=== PATIENT | female | born 1955 | race Caucasian/White ===

== ENCOUNTER 2019-12-02 15:50 | Inpatient (IN) ==
[2019-12-02] MEDS ORDERED: Naloxone 0.4 MG/ML INJ IVP PRN (19:39)
[2019-12-02] MEDS ORDERED: Acetaminophen 325 MG TABLET PO PRN (19:39)
[2019-12-02] MEDS ORDERED: Ondansetron ODT 4 MG TAB.RAPDIS SL PRN (19:39)
[2019-12-02] MEDS ORDERED: D5% in Water 1,000 ML IVC PRN (19:42)
[2019-12-02] MEDS ORDERED: Dextrose Gel 15 GM/37.5 ML TUBE PO PRN ×2 (19:42)
[2019-12-02] MEDS ORDERED: *HR* Dextrose 50 % in Water (Vial) 50 ML VIAL IVP PRN (19:42)
[2019-12-02] MEDS ORDERED: *HR* Heparin 5,000 UNIT/ML VIAL SQ ONE (19:46)
[2019-12-02] MEDS: Insulin LISPRO 300 UNITS/3 ML VIAL SQ SCH (22:17)
[2019-12-02] MEDS: Insulin DETEMIR 100 UNIT/ML X5UNITS SQ SCH (22:17)
[2019-12-03 06:54] LABS: Hematocrit 28.8 % (35.3-44.9); Hemoglobin 9.1 g/dL (11.5-15.4); Mean Corpuscular HGB Conc 31.6 g/dL (31.6-35.5); Mean Corpuscular Hemoglobin 28.8 pg (28.0-33.3); Mean Corpuscular Volume 91.1 fL (83.0-100.0); Mean Platelet Volume 11.8 fL (9.4-12.4); Platelet Count 214 K/mcL (140-400); Red Blood Count 3.16 M/mcL (3.82-4.97); Red Cell Distribution Width 13.2 % (11.5-14.5); White Blood Count 8.7 K/mcL (4.3-11.1)
[2019-12-03] MEDS: *HR* Heparin 5,000 UNIT/ML VIAL SQ SCH ×2 (06:58→17:06)
[2019-12-03 07:06] LABS: Calcium 8.2 mg/dL (8.6-10.3); Magnesium 1.7 mg/dL (1.6-2.6); Phosphorous 5.2 mg/dL (2.7-4.5); Potassium 3.8 mEq/L (3.5-5.1)
[2019-12-03 08:54] LABS: Hepatitis B Surface Antibody < 3.10 mIU/mL
[2019-12-03 09:05] LABS: Hepatitis B Surface Antigen Nonreactive (Nonreactive)
[2019-12-03] MEDS ORDERED: 0.9 % Sodium Chloride 250 ML IVC PRN (09:13)
[2019-12-03] MEDS: Insulin LISPRO 300 UNITS/3 ML VIAL SQ SCH ×4 (09:15→20:49)
[2019-12-03] MEDS ORDERED: 0.9 % Sodium Chloride 1,000 ML PRIME SCH (09:15)
[2019-12-03] MEDS ORDERED: 0.9 % Sodium Chloride 1,000 ML ONE (09:31)
[2019-12-03] MEDS ORDERED: *HR* Heparin 10,000 UNIT/10 ML VIAL ONE (14:06)
[2019-12-03] MEDS: cefTRIAXone 1,000 MG in 0.9 % Sodium Chloride Mini Bag 100 ML IVP SCH (16:01)
[2019-12-03] MEDS ORDERED: Fluticasone Propionate Nasal 50 MCG/SPRAY BOTTLE NS PRN (18:16)
[2019-12-03] MEDS: Calcium Acetate 667 MG CAPSULE PO SCH (18:22)
[2019-12-03] MEDS: Furosemide 40 MG TABLET PO SCH (18:56)
[2019-12-03] MEDS: carvediloL 25 MG TABLET PO SCH (18:56)
[2019-12-03] MEDS: Insulin DETEMIR 100 UNIT/ML X5UNITS SQ SCH (20:48)
[2019-12-04 01:43] LABS: Basophils % 0.5 %; Eosinophils # 0.1 K/mcL (0.0-0.6); Eosinophils % 1.7 %; Hematocrit 26.3 % (35.3-44.9); Hemoglobin 8.5 g/dL (11.5-15.4); Immature Granulocytes % 0.3 % (0-4); Lymphocytes # 1.6 K/mcL (0.6-4.6); Lymphocytes % 28.3 %; Mean Corpuscular HGB Conc 32.3 g/dL (31.6-35.5); Mean Corpuscular Hemoglobin 29.7 pg (28.0-33.3); Mean Platelet Volume 11.9 fL (9.4-12.4); Monocytes # 0.7 K/mcL (0.0-1.3); Monocytes % 11.6 %; Neutrophils # 3.3 K/mcL (1.6-8.9); Platelet Count 195 K/mcL (140-400); Red Blood Count 2.86 M/mcL (3.82-4.97); Red Cell Distribution Width 13.2 % (11.5-14.5); Segmented Neutrophils % 57.6 %; White Blood Count 5.8 K/mcL (4.3-11.1)
[2019-12-04 02:07] LABS: Calcium 7.5 mg/dL (8.6-10.3); Magnesium 1.8 mg/dL (1.6-2.6); Phosphorous 3.3 mg/dL (2.7-4.5); Potassium 4.1 mEq/L (3.5-5.1)
[2019-12-04] MEDS: *HR* Heparin 5,000 UNIT/ML VIAL SQ SCH ×2 (04:01→16:13)
[2019-12-04] MEDS: Furosemide 40 MG TABLET PO SCH ×2 (08:37→16:13)
[2019-12-04] MEDS: amLODIPine 5 MG TABLET PO SCH (08:37)
[2019-12-04] MEDS: Insulin LISPRO 300 UNITS/3 ML VIAL SQ SCH ×4 (08:37→21:30)
[2019-12-04] MEDS: Calcium Acetate 667 MG CAPSULE PO SCH ×3 (08:37→16:13)
[2019-12-04] MEDS: carvediloL 25 MG TABLET PO SCH ×2 (08:38→16:13)
[2019-12-04] MEDS: cefTRIAXone 1,000 MG in 0.9 % Sodium Chloride Mini Bag 100 ML IVP SCH (08:38)
[2019-12-04] MEDS: Insulin DETEMIR 100 UNIT/ML X5UNITS SQ SCH (21:30)
[2019-12-05 03:32] LABS: Basophils # 0.1 K/mcL (0.0-0.2); Basophils % 0.8 %; Eosinophils # 0.2 K/mcL (0.0-0.6); Eosinophils % 2.4 %; Hematocrit 26.3 % (35.3-44.9); Hemoglobin 8.6 g/dL (11.5-15.4); Immature Granulocytes % 1.1 % (0-4); Lymphocytes % 32.1 %; Mean Corpuscular HGB Conc 32.7 g/dL (31.6-35.5); Mean Corpuscular Hemoglobin 29.3 pg (28.0-33.3); Mean Corpuscular Volume 89.5 fL (83.0-100.0); Mean Platelet Volume 11.8 fL (9.4-12.4); Monocytes # 0.5 K/mcL (0.0-1.3); Monocytes % 8.1 %; Neutrophils # 3.5 K/mcL (1.6-8.9); Platelet Count 199 K/mcL (140-400); Red Blood Count 2.94 M/mcL (3.82-4.97); Red Cell Distribution Width 12.6 % (11.5-14.5); Segmented Neutrophils % 55.5 %; White Blood Count 6.3 K/mcL (4.3-11.1)
[2019-12-05] MEDS: *HR* Heparin 5,000 UNIT/ML VIAL SQ SCH (04:15)
[2019-12-05] MEDS ORDERED: 0.9 % Sodium Chloride 250 ML IVC PRN (07:15)
[2019-12-05] MEDS: Furosemide 40 MG TABLET PO SCH (07:30)
[2019-12-05] MEDS: Calcium Acetate 667 MG CAPSULE PO SCH ×2 (07:31→11:47)
[2019-12-05] MEDS: Insulin LISPRO 300 UNITS/3 ML VIAL SQ SCH ×2 (08:02→11:49)
[2019-12-05 13:18] VITALS: BP 151/82
[2019-12-05] MEDS: amLODIPine 5 MG TABLET PO SCH (14:27)
[2019-12-05] MEDS: carvediloL 25 MG TABLET PO SCH (14:27)
[2019-12-05] MEDS: cefTRIAXone 1,000 MG in 0.9 % Sodium Chloride Mini Bag 100 ML IVP SCH (14:28)
== END 2019-12-05 15:39 | disposition home health service (06) | DRG 383 ==
LOC: 2ANU → SUATTDRO 12-04 14:27
PROVIDERS: ADMIT Internal Medicine; ATTEND Internal Medicine

== ENCOUNTER 2021-01-08 18:07 | Inpatient (IN) ==
[~2021-01-08 18:07] MED LIST: cefTRIAXone 1,000 MG in 0.9 % Sodium Chloride Mini Bag 100 ML IVPB SCH
[2021-01-08] MEDS ORDERED: Naloxone 0.4 MG/ML INJ IVP PRN (19:53)
[2021-01-08] MEDS ORDERED: Ondansetron 4 MG/2 ML VIAL IVP PRN (19:53)
[2021-01-08] MEDS ORDERED: D5% in Water 1,000 ML IVC PRN (19:56)
[2021-01-08] MEDS ORDERED: Dextrose Gel 15 GM/37.5 ML TUBE PO PRN ×2 (19:56)
[2021-01-08] MEDS ORDERED: *HR* Dextrose 50 % in Water (Syg) 50 ML SYRINGE IVP PRN (19:56)
[2021-01-08] MEDS ORDERED: Insulin DETEMIR 100 UNIT/ML X5UNITS SUBQ SCH (21:00)
[2021-01-08] MEDS: *HR* Heparin 5,000 UNIT/ML VIAL SQ SCH (21:30)
[2021-01-09] MEDS: Insulin LISPRO 300 UNITS/3 ML VIAL SUBQ SCH ×4 (00:09→16:59)
[2021-01-09 02:03] LABS: Bacteria,Urine Many per hpf (None-Few); Bilirubin,Urine Negative (Negative); Blood,Urine Small (Negative); Budding Yeast,Urine Few per hpf (None Seen); Clarity,Urine Ex.Turbid (Clear); Color,Urine Yellow (Yellow); Glucose,Urine (UA) Normal (Normal); Ketones,Urine Negative (Negative); Leukocyte Esterase,Urine Large (Negative); Mucus,Urine Few per lpf (None-Few); Nitrite,Urine Negative (Negative); PH,Urine 7.5 pH Units (5.0-8.0); Protein,Urine 100 mg/dL (Neg-Trace); Squamous Epithelial Cell,Urine Few per hpf (None-Few); Urobilinogen,Urine Normal (Normal); WBC,Urine TNTC per hpf (0-3)
[2021-01-09 05:59] LABS: Basophils % 0.2 %; Hematocrit 33.3 % (35.3-44.9); Immature Granulocytes % 1.1 % (0-4); Lymphocytes # 1.6 K/mcL (0.6-4.6); Lymphocytes % 10.2 %; Mean Corpuscular Hemoglobin 27.9 pg (28.0-33.3); Mean Corpuscular Volume 84.5 fL (83.0-100.0); Mean Platelet Volume 12.3 fL (9.4-12.4); Monocytes # 0.6 K/mcL (0.0-1.3); Monocytes % 3.6 %; Platelet Count 250 K/mcL (140-400); Red Blood Count 3.94 M/mcL (3.82-4.97); Red Cell Distribution Width 13.6 % (11.5-14.5); Segmented Neutrophils % 84.9 %; White Blood Count 15.3 K/mcL (4.3-11.1)
[2021-01-09 06:05] LABS: Calcium 9.1 mg/dL (8.6-10.3); Phosphorous 2.2 mg/dL (2.7-4.5); Potassium 5.8 mEq/L (3.5-5.1)
[2021-01-09] MEDS: *HR* Heparin 5,000 UNIT/ML VIAL SQ SCH ×3 (06:12→20:41)
[2021-01-09] MEDS ORDERED: Insulin Human Regular 10 UNIT in 0.9 % Sodium Chloride 10 ML IV ONE (06:50)
[2021-01-09 06:51] LABS: Prothrombin Time 10.8 Seconds (9.4-12.1)
[2021-01-09 06:53] LABS: Activated Partial Thrombo Time 28.4 Seconds (26.0-36.0)
[2021-01-09] MEDS ORDERED: *HR* Dextrose 50 % in Water (Syg) 50 ML SYRINGE IVP ONE (07:00)
[2021-01-09] MEDS ORDERED: Acetaminophen IV 1,000 MG/100 ML BAG IVPB ONE (07:29)
[2021-01-09] MEDS ORDERED: Calcium Gluconate 1gm/50mL 1 GM/50 ML BAG IVPB ONE (07:36)
[2021-01-09] MEDS ORDERED: Albuterol 2.5 MG/3 ML NEBULIZER IH ONE (07:37)
[2021-01-09] MEDS ORDERED: 0.9 % Sodium Chloride 250 ML IVC PRN (08:21)
[2021-01-09] MEDS ORDERED: 0.9 % Sodium Chloride 1,000 ML PRIME SCH (08:30)
[2021-01-09] MEDS: Piperacillin/Tazobactam 3.375 GM in 0.9 % Sodium Chloride Mini Bag 100 ML IVPB SCH ×2 (09:01→20:41)
[2021-01-09 10:10] LABS: VBG HCO3 21 mEq/L (21-27); VBG PCO2 32 mmHg (41-51); VBG PH 7.43 pH Units (7.32-7.42); VBG PO2 54 mmHg (25-50)
[2021-01-09 10:43] LABS: Hepatitis B Surface Antibody < 3.10 mIU/mL
[2021-01-09 10:53] LABS: Hepatitis B Surface Antigen Nonreactive (Nonreactive)
[2021-01-09] MEDS ORDERED: *HR* LORazepam 2 MG/ML VIAL IVP PRN (13:07)
[2021-01-09] MEDS: Acetaminophen IV 500 MG/50 ML BAG IVPB SCH ×2 (13:52→20:21)
[2021-01-09] MEDS ORDERED: Vancomycin 1,500 MG/265 ML IV.SOLN IVPB ONE (18:00)
[2021-01-09 19:43] LABS: Calcium 8.6 mg/dL (8.6-10.3); Potassium 3.4 mEq/L (3.5-5.1)
[2021-01-09] MEDS: Bisacodyl 10 MG RECTAL SUPPOSITORY RC SCH (20:20)
[2021-01-09] MEDS: Insulin DETEMIR 100 UNIT/ML X5UNITS SUBQ SCH (20:22)
[2021-01-09] MEDS: levETIRAcetam 250 MG in 0.9 % Sodium Chloride 100 ML IVPB SCH (20:22)
[2021-01-10] MEDS: Thiamine (B-1) 100 MG in 0.9 % Sodium Chloride 50 ML IVPB SCH ×3 (00:55→20:16)
[2021-01-10] MEDS: Insulin LISPRO 300 UNITS/3 ML VIAL SUBQ SCH ×4 (00:56→18:00)
[2021-01-10] MEDS: Acetaminophen IV 500 MG/50 ML BAG IVPB SCH ×2 (01:58→06:26)
[2021-01-10 04:31] LABS: Basophils % 0.3 %; Hematocrit 26.7 % (35.3-44.9); Immature Granulocytes % 0.5 % (0-4); Lymphocytes # 2.9 K/mcL (0.6-4.6); Lymphocytes % 22.8 %; Mean Corpuscular HGB Conc 32.6 g/dL (31.6-35.5); Mean Corpuscular Hemoglobin 28.5 pg (28.0-33.3); Mean Corpuscular Volume 87.5 fL (83.0-100.0); Mean Platelet Volume 11.8 fL (9.4-12.4); Monocytes # 0.7 K/mcL (0.0-1.3); Monocytes % 5.4 %; Platelet Count 190 K/mcL (140-400); Red Blood Count 3.05 M/mcL (3.82-4.97); Red Cell Distribution Width 14.2 % (11.5-14.5); White Blood Count 12.7 K/mcL (4.3-11.1)
[2021-01-10 04:32] LABS: Hemoglobin 8.7 g/dL (11.5-15.4)
[2021-01-10 04:48] LABS: Calcium 8.2 mg/dL (8.6-10.3); Magnesium 1.9 mg/dL (1.6-2.6); Phosphorous 5.1 mg/dL (2.7-4.5); Potassium 4.1 mEq/L (3.5-5.1)
[2021-01-10] MEDS: *HR* Heparin 5,000 UNIT/ML VIAL SQ SCH (06:26)
[2021-01-10] MEDS: levETIRAcetam 250 MG in 0.9 % Sodium Chloride 100 ML IVPB SCH (07:45)
[2021-01-10] MEDS: Piperacillin/Tazobactam 3.375 GM in 0.9 % Sodium Chloride Mini Bag 100 ML IVPB SCH ×2 (10:19→20:16)
[2021-01-10 11:15] LABS: Adenovirus Not Detected (Not Detect); Bordetella Pertussis Not Detected (Not Detect); Chlamydophila pneumoniae Not Detected (Not Detect); Coronavirus 229E Not Detected (Not Detect); Coronavirus HKU1 Not Detected (Not Detect); Coronavirus NL63 Not Detected (Not Detect); Coronavirus OC43 Not Detected (Not Detect); Human Metapneumovirus Not Detected (Not Detect); Human Rhinovirus/Enterovirus Not Detected (Not Detect); Influenza A Subtype 2009 H1 Not Detected (Not Detect); Influenza B Not Detected (Not Detect); Mycoplasma pneumoniae Not Detected (Not Detect); Parainfluenza Virus 1 Not Detected (Not Detect); Parainfluenza Virus 2 Not Detected (Not Detect); Parainfluenza Virus 3 Not Detected (Not Detect); Parainfluenza Virus 4 Not Detected (Not Detect); Respiratory Syncytial Virus Not Detected (Not Detect); SARS-CoV-2 Not Detected (Not Detect)
[2021-01-10 13:35] LABS: ABG Base Excess 3 mEq/L (-2 to 3); ABG HCO3 28 mEq/L (21-27); ABG Oxygen Saturation 92 % (95-98); ABG PCO2 41 mmHg (35-45); ABG PH 7.44 pH Units (7.32-7.45); ABG PO2 63 mmHg (85-104); ABG TCO2 29 mEq/L (20-26)
[2021-01-10 14:30] LABS: Hematocrit 27.6 % (35.3-44.9); Hemoglobin 8.5 g/dL (11.5-15.4)
[2021-01-10] MEDS ORDERED: Milk and Molasses Enema 200 ML RC ONE (14:47)
[2021-01-10] MEDS: Sennosides/Docusate Sodium TABLET PO SCH (20:16)
[2021-01-10] MEDS: Bisacodyl 10 MG RECTAL SUPPOSITORY RC SCH (20:16)
[2021-01-10] MEDS: Insulin DETEMIR 100 UNIT/ML X5UNITS SUBQ SCH (20:19)
[2021-01-11] MEDS: Insulin LISPRO 300 UNITS/3 ML VIAL SUBQ SCH ×4 (00:18→17:10)
[2021-01-11 05:47] LABS: Basophils % 0.2 %; Eosinophils # 0.1 K/mcL (0.0-0.6); Eosinophils % 1.6 %; Hematocrit 27.3 % (35.3-44.9); Immature Granulocytes % 0.5 % (0-4); Lymphocytes # 2.1 K/mcL (0.6-4.6); Lymphocytes % 24.3 %; Mean Corpuscular Hemoglobin 29.2 pg (28.0-33.3); Mean Corpuscular Volume 88.6 fL (83.0-100.0); Mean Platelet Volume 12.2 fL (9.4-12.4); Monocytes # 0.6 K/mcL (0.0-1.3); Monocytes % 6.5 %; Neutrophils # 5.9 K/mcL (1.6-8.9); Platelet Count 193 K/mcL (140-400); Red Blood Count 3.08 M/mcL (3.82-4.97); Segmented Neutrophils % 66.9 %; White Blood Count 8.8 K/mcL (4.3-11.1)
[2021-01-11 06:05] LABS: Albumin 3.2 g/dL (3.5-5.7); Bilirubin,Total 0.6 mg/dL (0.3-1.0); Calcium 7.8 mg/dL (8.6-10.3); Globulin 3.1 g/dL (2.4-3.5); Phosphorous 5.7 mg/dL (2.7-4.5); Potassium 3.9 mEq/L (3.5-5.1); Total Protein 6.3 g/dL (6.4-8.9)
[2021-01-11] MEDS: levETIRAcetam 250 MG in 0.9 % Sodium Chloride 100 ML IVPB SCH (07:31)
[2021-01-11] MEDS: Sennosides/Docusate Sodium TABLET PO SCH ×2 (07:46→20:00)
[2021-01-11] MEDS: Thiamine (B-1) 100 MG in 0.9 % Sodium Chloride 50 ML IVPB SCH ×2 (07:50→20:01)
[2021-01-11] MEDS: Piperacillin/Tazobactam 3.375 GM in 0.9 % Sodium Chloride Mini Bag 100 ML IVPB SCH (09:27)
[2021-01-11] MEDS: cefTRIAXone 1,000 MG in 0.9 % Sodium Chloride Mini Bag 100 ML IVP SCH (14:34)
[2021-01-11] MEDS: *HR* Heparin 5,000 UNIT/ML VIAL SQ SCH ×2 (14:35→20:00)
[2021-01-11] MEDS: Insulin DETEMIR 100 UNIT/ML X5UNITS SUBQ SCH (20:00)
[2021-01-11] MEDS: Bisacodyl 10 MG RECTAL SUPPOSITORY RC SCH (20:12)
[2021-01-12 02:49] LABS: Calcium 7.4 mg/dL (8.6-10.3)
[2021-01-12] MEDS ORDERED: Morphine Sulfate 2 MG/ML SYRINGE IVP ONE (05:13)
[2021-01-12 06:27] LABS: Hematocrit 27.1 % (35.3-44.9); Hemoglobin 8.6 g/dL (11.5-15.4); Mean Corpuscular HGB Conc 31.7 g/dL (31.6-35.5); Mean Corpuscular Hemoglobin 28.1 pg (28.0-33.3); Mean Corpuscular Volume 88.6 fL (83.0-100.0); Mean Platelet Volume 12.1 fL (9.4-12.4); Platelet Count 183 K/mcL (140-400); Red Blood Count 3.06 M/mcL (3.82-4.97); Red Cell Distribution Width 13.7 % (11.5-14.5); White Blood Count 6.3 K/mcL (4.3-11.1)
[2021-01-12] MEDS: *HR* Heparin 5,000 UNIT/ML VIAL SQ SCH ×3 (06:37→21:08)
[2021-01-12 06:58] LABS: Calcium 7.4 mg/dL (8.6-10.3); Potassium 3.5 mEq/L (3.5-5.1)
[2021-01-12] MEDS ORDERED: *HR* Heparin 10,000 UNIT/10 ML VIAL IV PRN (08:30)
[2021-01-12] MEDS ORDERED: 0.9 % Sodium Chloride 1,000 ML PRIME SCH (08:30)
[2021-01-12] MEDS ORDERED: 0.9 % Sodium Chloride 250 ML IVC PRN (08:30)
[2021-01-12] MEDS: Sennosides/Docusate Sodium TABLET PO SCH ×2 (08:55→21:08)
[2021-01-12] MEDS: levETIRAcetam 250 MG in 0.9 % Sodium Chloride 100 ML IVPB SCH (08:57)
[2021-01-12] MEDS: Insulin LISPRO 300 UNITS/3 ML VIAL SUBQ SCH ×3 (09:02→16:39)
[2021-01-12] MEDS: cefTRIAXone 1,000 MG in 0.9 % Sodium Chloride Mini Bag 100 ML IVP SCH (09:33)
[2021-01-12] MEDS: Thiamine (B-1) 100 MG in 0.9 % Sodium Chloride 50 ML IVPB SCH (10:05)
[2021-01-12] MEDS ORDERED: levETIRAcetam 250 MG TABLET PO SCH (21:00)
[2021-01-12] MEDS: Bisacodyl 10 MG RECTAL SUPPOSITORY RC SCH (21:08)
[2021-01-12] MEDS: Thiamine (B-1) 100 MG TABLET PO SCH (21:08)
[2021-01-12] MEDS: Insulin DETEMIR 100 UNIT/ML X5UNITS SUBQ SCH (21:11)
[2021-01-13] MEDS: *HR* Heparin 5,000 UNIT/ML VIAL SQ SCH ×2 (06:41→14:43)
[2021-01-13 06:50] LABS: Hematocrit 27.4 % (35.3-44.9); Hemoglobin 8.8 g/dL (11.5-15.4); Mean Corpuscular HGB Conc 32.1 g/dL (31.6-35.5); Mean Corpuscular Hemoglobin 28.3 pg (28.0-33.3); Mean Corpuscular Volume 88.1 fL (83.0-100.0); Mean Platelet Volume 11.7 fL (9.4-12.4); Platelet Count 211 K/mcL (140-400); Red Blood Count 3.11 M/mcL (3.82-4.97); Red Cell Distribution Width 13.7 % (11.5-14.5); White Blood Count 6.9 K/mcL (4.3-11.1)
[2021-01-13 07:08] LABS: Potassium 3.9 mEq/L (3.5-5.1)
[2021-01-13 07:35] VITALS: TEMP 97.5
[2021-01-13 07:59] LABS: Estimated Average Glucose 148 mg/dl; Hemoglobin A1C 6.8 %
[2021-01-13] MEDS: Thiamine (B-1) 100 MG TABLET PO SCH (09:31)
[2021-01-13] MEDS: cefTRIAXone 1,000 MG in 0.9 % Sodium Chloride Mini Bag 100 ML IVP SCH (09:31)
[2021-01-13] MEDS: Sennosides/Docusate Sodium TABLET PO SCH (09:31)
[2021-01-13] MEDS: Insulin LISPRO 300 UNITS/3 ML VIAL SUBQ SCH ×2 (09:33→12:07)
[2021-01-13] MEDS ORDERED: Ketoconazole Shampoo 120 ML BOTTLE TP ONE (10:28)
[2021-01-13 12:03] VITALS: BP 143/83; PULSE 74; O2SAT 92
== END 2021-01-13 18:31 | disposition home health service (06) | DRG 720 ==
LOC: 2ANU → SUATTDRO 19:13
PROVIDERS: ADMIT Pharmacist; ATTEND Internal Medicine

== ENCOUNTER 2021-03-20 17:06 | Inpatient (IN) ==
[2021-03-20] MEDS ORDERED: Ondansetron 4 MG/2 ML VIAL IVP PRN (20:46)
[2021-03-20] MEDS ORDERED: Naloxone 0.4 MG/ML INJ IVP PRN (20:46)
[2021-03-20] MEDS ORDERED: Azithromycin 500 MG in 0.9 % Sodium Chloride 250 ML IVPB SCH (22:00)
[2021-03-20] MEDS ORDERED: cefTRIAXone 1,000 MG in 0.9 % Sodium Chloride Mini Bag 100 ML IVPB SCH (22:00)
[2021-03-20] MEDS ORDERED: Dextrose Gel 15 GM/37.5 ML TUBE PO PRN ×2 (22:47)
[2021-03-20] MEDS ORDERED: *HR* Dextrose 50 % in Water (Syg) 50 ML SYRINGE IVP PRN (22:47)
[2021-03-20] MEDS ORDERED: D5% in Water 1,000 ML IVC PRN (22:47)
[2021-03-20] MEDS ORDERED: Perflutren Lipid Microsphere 1.3 ML in 0.9 % Sodium Chloride 8.7 ML IVP PRN (23:17)
[2021-03-20] MEDS: MetroNIDAZOLE 500 MG/100 ML 500 MG/100 ML BAG IVPB SCH (23:32)
[2021-03-21 00:40] LABS: Adenovirus Not Detected (Not Detect); Coronavirus 229E Not Detected (Not Detect); Coronavirus HKU1 Not Detected (Not Detect); Coronavirus NL63 Not Detected (Not Detect); Coronavirus OC43 Not Detected (Not Detect)
[2021-03-21 00:41] LABS: Bordetella Pertussis Not Detected (Not Detect); Chlamydophila pneumoniae Not Detected (Not Detect); Human Metapneumovirus Not Detected (Not Detect); Human Rhinovirus/Enterovirus Not Detected (Not Detect); Influenza A Subtype 2009 H1 Not Detected (Not Detect); Influenza B Not Detected (Not Detect); Mycoplasma pneumoniae Not Detected (Not Detect); Parainfluenza Virus 1 Not Detected (Not Detect); Parainfluenza Virus 2 Not Detected (Not Detect); Parainfluenza Virus 3 Not Detected (Not Detect); Parainfluenza Virus 4 Not Detected (Not Detect); Respiratory Syncytial Virus Not Detected (Not Detect); SARS-CoV-2 DETECTED (Not Detect)
[2021-03-21 03:51] LABS: Hematocrit 26.4 % (35.3-44.9); Hemoglobin 8.4 g/dL (11.5-15.4); Mean Corpuscular HGB Conc 31.8 g/dL (31.6-35.5); Mean Corpuscular Hemoglobin 28.8 pg (28.0-33.3); Mean Corpuscular Volume 90.4 fL (83.0-100.0); Mean Platelet Volume 12.2 fL (9.4-12.4); Platelet Count 146 K/mcL (140-400); Red Blood Count 2.92 M/mcL (3.82-4.97); Red Cell Distribution Width 14.4 % (11.5-14.5); White Blood Count 4.1 K/mcL (4.3-11.1)
[2021-03-21 04:03] LABS: Prothrombin Time 11.3 Seconds (9.4-12.1)
[2021-03-21 04:06] LABS: Activated Partial Thrombo Time 30.7 Seconds (26.0-36.0)
[2021-03-21 04:11] LABS: Calcium 7.2 mg/dL (8.6-10.3); Phosphorous 5.7 mg/dL (2.7-4.5); Potassium 4.3 mEq/L (3.5-5.1)
[2021-03-21 04:16] LABS: Troponin I 0.16 ng/mL (< 0.04)
[2021-03-21] MEDS: *HR* Heparin 5,000 UNIT/ML VIAL SQ SCH ×3 (05:58→20:44)
[2021-03-21] MEDS ORDERED: 0.9 % Sodium Chloride 250 ML IVC PRN (08:31)
[2021-03-21] MEDS ORDERED: *HR* Heparin 10,000 UNIT/10 ML VIAL IV PRN (08:31)
[2021-03-21] MEDS ORDERED: 0.9 % Sodium Chloride 1,000 ML PRIME SCH (08:45)
[2021-03-21] MEDS ORDERED: Aspirin 81 MG TAB.CHEW PO SCH (09:00)
[2021-03-21 10:00] LABS: Hepatitis B Surface Antibody < 3.10 mIU/mL
[2021-03-21 10:10] LABS: Hepatitis B Surface Antigen Nonreactive (Nonreactive)
[2021-03-21 10:39] LABS: Hepatitis C Virus Antibody Nonreactive (Nonreactive)
[2021-03-21 10:40] LABS: Hepatitis B Core IgM Nonreactive (Nonreactive)
[2021-03-21 10:42] LABS: Hepatitis A Antibody IgM Nonreactive (Nonreactive)
[2021-03-21] MEDS: Insulin LISPRO 300 UNITS/3 ML VIAL SUBQ SCH ×3 (11:20→17:34)
[2021-03-21] MEDS: carvediloL 6.25 MG TABLET PO SCH (17:07)
[2021-03-21] MEDS: MetroNIDAZOLE 500 MG/100 ML 500 MG/100 ML BAG IVPB SCH ×2 (17:08)
[2021-03-21] MEDS: amLODIPine 5 MG TABLET PO SCH (17:24)
[2021-03-21] MEDS: Isosorbide MONOnitrate (24 HR) 30 MG TAB.ER.24H PO SCH (17:25)
[2021-03-22] MEDS: MetroNIDAZOLE 500 MG/100 ML 500 MG/100 ML BAG IVPB SCH ×2 (00:01→08:22)
[2021-03-22] MEDS: *HR* Heparin 5,000 UNIT/ML VIAL SQ SCH ×3 (05:43→21:27)
[2021-03-22 06:36] LABS: Basophils % 0.2 %; Hematocrit 24.6 % (35.3-44.9); Hemoglobin 8.2 g/dL (11.5-15.4); Immature Granulocytes % 0.4 % (0-4); Lymphocytes # 1.5 K/mcL (0.6-4.6); Mean Corpuscular HGB Conc 33.3 g/dL (31.6-35.5); Mean Corpuscular Hemoglobin 29.5 pg (28.0-33.3); Mean Corpuscular Volume 88.5 fL (83.0-100.0); Mean Platelet Volume 12.7 fL (9.4-12.4); Monocytes # 0.6 K/mcL (0.0-1.3); Monocytes % 11.8 %; Neutrophils # 2.9 K/mcL (1.6-8.9); Platelet Count 168 K/mcL (140-400); Red Blood Count 2.78 M/mcL (3.82-4.97); Red Cell Distribution Width 14.2 % (11.5-14.5); Segmented Neutrophils % 58.6 %
[2021-03-22 06:57] LABS: Calcium 7.4 mg/dL (8.6-10.3)
[2021-03-22 06:59] LABS: % Iron Saturation 78 % (15-50); Iron 161 mcg/dL (50-170); Transferrin 147 mg/dL (203-362)
[2021-03-22] MEDS: Isosorbide MONOnitrate (24 HR) 30 MG TAB.ER.24H PO SCH (08:21)
[2021-03-22] MEDS: Aspirin Enteric Coated 81 MG Tablet PO SCH (08:22)
[2021-03-22] MEDS: methocarbamoL 750 MG TABLET PO SCH (08:22)
[2021-03-22] MEDS: carvediloL 6.25 MG TABLET PO SCH ×2 (08:22→16:52)
[2021-03-22] MEDS: NIFEdipine XL (24 HR) 30 MG TAB.ER.24 PO SCH (08:22)
[2021-03-22] MEDS: Furosemide 40 MG TABLET PO SCH (08:22)
[2021-03-22] MEDS: amLODIPine 5 MG TABLET PO SCH (08:22)
[2021-03-22] MEDS: Insulin LISPRO 300 UNITS/3 ML VIAL SUBQ SCH ×3 (08:23→16:52)
[2021-03-22] MEDS: Acetaminophen 325 MG TABLET PO PRN (13:01)
[2021-03-23 06:02] LABS: Basophils % 0.3 %; Hematocrit 23.8 % (35.3-44.9); Hemoglobin 7.9 g/dL (11.5-15.4); Immature Granulocytes % 0.6 % (0-4); Lymphocytes # 0.5 K/mcL (0.6-4.6); Lymphocytes % 16.6 %; Mean Corpuscular HGB Conc 33.2 g/dL (31.6-35.5); Mean Corpuscular Hemoglobin 28.7 pg (28.0-33.3); Mean Corpuscular Volume 86.5 fL (83.0-100.0); Mean Platelet Volume 12.1 fL (9.4-12.4); Monocytes # 0.2 K/mcL (0.0-1.3); Monocytes % 7.5 %; Neutrophils # 2.4 K/mcL (1.6-8.9); Nucleated Red Blood Cells 0.6 /100 WBC (0); Platelet Count 142 K/mcL (140-400); Red Blood Count 2.75 M/mcL (3.82-4.97); Red Cell Distribution Width 14.1 % (11.5-14.5); White Blood Count 3.2 K/mcL (4.3-11.1)
[2021-03-23] MEDS: *HR* Heparin 5,000 UNIT/ML VIAL SQ SCH ×4 (06:11→21:44)
[2021-03-23 06:22] LABS: Calcium 6.7 mg/dL (8.6-10.3); Potassium 3.8 mEq/L (3.5-5.1)
[2021-03-23] MEDS: Insulin LISPRO 300 UNITS/3 ML VIAL SUBQ SCH ×3 (08:38→17:33)
[2021-03-23] MEDS: amLODIPine 5 MG TABLET PO SCH (08:45)
[2021-03-23] MEDS: Aspirin Enteric Coated 81 MG Tablet PO SCH (08:45)
[2021-03-23] MEDS: NIFEdipine XL (24 HR) 30 MG TAB.ER.24 PO SCH (08:45)
[2021-03-23] MEDS: Isosorbide MONOnitrate (24 HR) 30 MG TAB.ER.24H PO SCH (08:46)
[2021-03-23] MEDS: carvediloL 6.25 MG TABLET PO SCH ×2 (08:46→17:32)
[2021-03-23] MEDS: Furosemide 40 MG TABLET PO SCH (08:46)
[2021-03-23] MEDS: methocarbamoL 750 MG TABLET PO SCH (08:54)
[2021-03-23] MEDS ORDERED: *HR* Heparin 10,000 UNIT/10 ML VIAL IV PRN (09:00)
[2021-03-23] MEDS ORDERED: Valproic Acid 250 MG CAPSULE PO ONE ×2 (10:00→16:15)
[2021-03-23] MEDS: Acetaminophen 325 MG TABLET PO PRN (14:01)
[2021-03-23 15:04] LABS: Folate 4.2 ng/mL (3.0-16.0)
[2021-03-23] MEDS ORDERED: 0.9 % Sodium Chloride 500 ML ONE (21:14)
[2021-03-23] MEDS ORDERED: 0.9 % Sodium Chloride 500 ML IVC ONE (21:41)
[2021-03-23] MEDS: 0.9 % Sodium Chloride 250 ML IVC PRN (22:10)
[2021-03-23] MEDS ORDERED: Albumin 25% 25gram/100mL 25 GM/100 ML IV.SOLN IVPB ONE (23:25)
[2021-03-24] MEDS: 0.9 % Sodium Chloride 250 ML IVC PRN (00:45)
[2021-03-24] MEDS: *HR* Heparin 5,000 UNIT/ML VIAL SQ SCH ×3 (05:19→20:39)
[2021-03-24] MEDS: Isosorbide MONOnitrate (24 HR) 30 MG TAB.ER.24H PO SCH (09:54)
[2021-03-24] MEDS: Aspirin Enteric Coated 81 MG Tablet PO SCH (09:54)
[2021-03-24] MEDS: Furosemide 40 MG TABLET PO SCH (09:54)
[2021-03-24] MEDS: Insulin LISPRO 300 UNITS/3 ML VIAL SUBQ SCH ×4 (09:55→20:38)
[2021-03-24] MEDS: methocarbamoL 750 MG TABLET PO SCH (09:59)
[2021-03-24] MEDS: NIFEdipine XL (24 HR) 30 MG TAB.ER.24 PO SCH (10:16)
[2021-03-24] MEDS: amLODIPine 5 MG TABLET PO SCH (10:16)
[2021-03-24] MEDS: carvediloL 6.25 MG TABLET PO SCH ×2 (10:16→16:18)
[2021-03-24 11:43] LABS: Hematocrit 22.9 % (35.3-44.9); Hemoglobin 7.6 g/dL (11.5-15.4); Mean Corpuscular HGB Conc 33.2 g/dL (31.6-35.5); Mean Corpuscular Hemoglobin 28.7 pg (28.0-33.3); Mean Corpuscular Volume 86.4 fL (83.0-100.0); Mean Platelet Volume 12.4 fL (9.4-12.4); Platelet Count 109 K/mcL (140-400); Red Blood Count 2.65 M/mcL (3.82-4.97); Red Cell Distribution Width 14.1 % (11.5-14.5)
[2021-03-24 11:59] LABS: Potassium 3.9 mEq/L (3.5-5.1)
[2021-03-24 12:13] LABS: Lymphocytes # 0.5 K/mcL (0.6-4.6); Monocytes # 0.1 K/mcL (0.0-1.3); Neutrophils # 2.4 K/mcL (1.6-8.9)
[2021-03-24 12:14] LABS: Platelet Estimate Decreased (Normal)
[2021-03-24] MEDS ORDERED: Insulin DETEMIR 100 UNIT/ML X5UNITS SUBQ ONE (14:52)
[2021-03-24] MEDS: Acetaminophen 325 MG TABLET PO PRN (16:18)
[2021-03-25 02:16] LABS: Hematocrit 22.8 % (35.3-44.9); Hemoglobin 7.4 g/dL (11.5-15.4); Mean Corpuscular HGB Conc 32.5 g/dL (31.6-35.5); Mean Corpuscular Hemoglobin 28.7 pg (28.0-33.3); Mean Corpuscular Volume 88.4 fL (83.0-100.0); Mean Platelet Volume 12.3 fL (9.4-12.4); Platelet Count 152 K/mcL (140-400); Red Blood Count 2.58 M/mcL (3.82-4.97); Red Cell Distribution Width 13.8 % (11.5-14.5); White Blood Count 3.7 K/mcL (4.3-11.1)
[2021-03-25 02:33] LABS: Calcium 7.2 mg/dL (8.6-10.3); Potassium 3.7 mEq/L (3.5-5.1)
[2021-03-25] MEDS: *HR* Heparin 5,000 UNIT/ML VIAL SQ SCH ×2 (06:13→21:05)
[2021-03-25] MEDS ORDERED: 0.9 % Sodium Chloride 250 ML IVC PRN (08:32)
[2021-03-25] MEDS ORDERED: 0.9 % Sodium Chloride 1,000 ML PRIME SCH (08:45)
[2021-03-25] MEDS: Insulin LISPRO 300 UNITS/3 ML VIAL SUBQ SCH ×4 (10:06→21:05)
[2021-03-25] MEDS: methocarbamoL 750 MG TABLET PO SCH (10:07)
[2021-03-25] MEDS: amLODIPine 5 MG TABLET PO SCH (10:07)
[2021-03-25] MEDS: Furosemide 40 MG TABLET PO SCH (10:07)
[2021-03-25] MEDS: Isosorbide MONOnitrate (24 HR) 30 MG TAB.ER.24H PO SCH (10:08)
[2021-03-25] MEDS: Aspirin Enteric Coated 81 MG Tablet PO SCH (10:08)
[2021-03-25] MEDS: Insulin DETEMIR 100 UNIT/ML X5UNITS SUBQ SCH (12:19)
[2021-03-25] MEDS: carvediloL 6.25 MG TABLET PO SCH ×2 (12:19→16:35)
[2021-03-26] MEDS: *HR* Heparin 5,000 UNIT/ML VIAL SQ SCH (05:34)
[2021-03-26 06:05] LABS: White Blood Count 5.5 K/mcL (4.3-11.1)
[2021-03-26 06:07] LABS: Hematocrit 24.1 % (35.3-44.9); Hemoglobin 7.8 g/dL (11.5-15.4); Immature Platelets 11.7 % (1.1-6.1); Mean Corpuscular HGB Conc 32.4 g/dL (31.6-35.5); Mean Corpuscular Volume 89.6 fL (83.0-100.0); Mean Platelet Volume 13.5 fL (9.4-12.4); Red Blood Count 2.69 M/mcL (3.82-4.97); Red Cell Distribution Width 13.7 % (11.5-14.5)
[2021-03-26 07:32] LABS: Calcium 7.7 mg/dL (8.6-10.3)
[2021-03-26] MEDS: Insulin LISPRO 300 UNITS/3 ML VIAL SUBQ SCH (08:09)
[2021-03-26] MEDS: carvediloL 6.25 MG TABLET PO SCH (08:24)
[2021-03-26] MEDS: Aspirin Enteric Coated 81 MG Tablet PO SCH (08:24)
[2021-03-26] MEDS: methocarbamoL 750 MG TABLET PO SCH (08:24)
[2021-03-26] MEDS: amLODIPine 5 MG TABLET PO SCH (08:24)
[2021-03-26] MEDS: Isosorbide MONOnitrate (24 HR) 30 MG TAB.ER.24H PO SCH (08:25)
[2021-03-26] MEDS: Furosemide 40 MG TABLET PO SCH (08:25)
[2021-03-26] MEDS: Insulin DETEMIR 100 UNIT/ML X5UNITS SUBQ SCH (09:42)
[2021-03-26 10:52] VITALS: BP 141/91; PULSE 70; TEMP 99.1; O2SAT 98
== END 2021-03-26 14:08 | disposition home health service (06) | DRG 720 ==
LOC: 2ANU → 2NENU 03-21 01:35 → SUATTDRO 03-24 13:12
PROVIDERS: ADMIT General Practice; ATTEND Internal Medicine

== ENCOUNTER 2021-06-29 15:13 | Inpatient (IN) ==
[2021-06-29] MEDS ORDERED: Naloxone 0.4 MG/ML INJ IVP PRN (18:16)
[2021-06-29] MEDS ORDERED: Artificial Tears SOLN 15 ML BOTTLE BOTH EYES PRN (18:18)
[2021-06-29] MEDS ORDERED: Ampicillin/Sulbactam 3,000 MG in 0.9 % Sodium Chloride Mini Bag 100 ML IVPB SCH (18:26)
[2021-06-29 18:36] LABS: ABG Base Excess -1 mEq/L (-2 to 3); ABG HCO3 22 mEq/L (21-27); ABG Oxygen Saturation 100 % (95-98); ABG PCO2 29 mmHg (35-45); ABG PH 7.48 pH Units (7.32-7.45); ABG PO2 239 mmHg (85-104); ABG TCO2 23 mEq/L (20-26); Blood Gas Modality ASSIST CONTROL; Blood Gas VT 430 cc
[2021-06-29] MEDS ORDERED: Amiodarone Premix 360 MG/200 ML BAG IVC ONE (18:36)
[2021-06-29] MEDS: Dexmedetomidine HCl 400 MCG/100 ML MLS IVC SCH (18:38)
[2021-06-29] MEDS ORDERED: Dextrose 4 GM Chewable Tablets PO PRN ×2 (18:39)
[2021-06-29] MEDS ORDERED: D5% in Water 1,000 ML IVC PRN ×2 (18:39→18:48)
[2021-06-29] MEDS ORDERED: *HR* Dextrose 50 % in Water (Syg) 50 ML SYRINGE IVP PRN (18:39)
[2021-06-29] MEDS: Artificial Tears SOLN 15 ML BOTTLE BOTH EYES SCH ×2 (18:44→23:39)
[2021-06-29] MEDS: cefTRIAXone 1,000 MG in 0.9 % Sodium Chloride 10 ML IVPB SCH (19:20)
[2021-06-29] MEDS: Pantoprazole 40 MG VIAL IVP SCH (19:20)
[2021-06-29] MEDS: Amiodarone Premix 360 MG/200 ML BAG IVC SCH (19:21)
[2021-06-29 19:46] LABS: VBG Ionized Calcium 1.07 mmol/L (1.15-1.35)
[2021-06-29 19:47] LABS: Hematocrit 31.5 % (35.3-44.9); Hemoglobin 10.4 g/dL (11.5-15.4); Mean Corpuscular Hemoglobin 30.7 pg (28.0-33.3); Mean Corpuscular Volume 92.9 fL (83.0-100.0); Mean Platelet Volume 11.4 fL (9.4-12.4); Platelet Count 144 K/mcL (140-400); Red Blood Count 3.39 M/mcL (3.82-4.97); Red Cell Distribution Width 13.8 % (11.5-14.5); White Blood Count 14.3 K/mcL (4.3-11.1)
[2021-06-29 20:04] LABS: Albumin 2.8 g/dL (3.5-5.7); Albumin/Globulin Ratio 0.9 (1.1-2.2); Bilirubin,Total 1.1 mg/dL (0.3-1.0); Globulin 3.1 g/dL (2.4-3.5); Magnesium 1.8 mg/dL (1.6-2.6); Potassium 2.9 mEq/L (3.5-5.1); Total Protein 5.9 g/dL (6.4-8.9)
[2021-06-29] MEDS: FentaNYL (PF) 1,000 MCG/100 ML IV.SOLN IVC SCH (20:54)
[2021-06-29] MEDS ORDERED: Insulin DETEMIR 100 UNIT/ML X5UNITS SUBQ SCH (21:00)
[2021-06-29] MEDS: Chlorhexidine Rinse 15 ML MOUTHWASH MM SCH (21:33)
[2021-06-29] MEDS: Phenylephrine 20 MG in 0.9 % Sodium Chloride 250 ML IVC SCH (23:35)
[2021-06-29] MEDS: Insulin LISPRO 300 UNITS/3 ML VIAL SUBQ SCH (23:44)
[2021-06-30] MEDS: Artificial Tears SOLN 15 ML BOTTLE BOTH EYES SCH ×6 (04:04→23:27)
[2021-06-30 04:43] LABS: ABG Base Excess 6 mEq/L (-2 to 3); ABG HCO3 29 mEq/L (21-27); ABG Oxygen Saturation 100 % (95-98); ABG PCO2 35 mmHg (35-45); ABG PH 7.53 pH Units (7.32-7.45); ABG PO2 143 mmHg (85-104); ABG TCO2 30 mEq/L (20-26); Blood Gas Modality AF; Blood Gas VT 430 cc
[2021-06-30 04:51] LABS: Hematocrit 30.8 % (35.3-44.9); Hemoglobin 10.2 g/dL (11.5-15.4); Mean Corpuscular HGB Conc 33.1 g/dL (31.6-35.5); Mean Corpuscular Hemoglobin 30.4 pg (28.0-33.3); Mean Corpuscular Volume 91.9 fL (83.0-100.0); Mean Platelet Volume 11.8 fL (9.4-12.4); Platelet Count 186 K/mcL (140-400); Red Blood Count 3.35 M/mcL (3.82-4.97); Red Cell Distribution Width 14.1 % (11.5-14.5)
[2021-06-30 04:57] LABS: Prothrombin Time 10.9 Seconds (9.4-12.1)
[2021-06-30 05:10] LABS: Albumin 2.8 g/dL (3.5-5.7); Albumin/Globulin Ratio 0.9 (1.1-2.2); Bilirubin,Total 0.7 mg/dL (0.3-1.0); Calcium 8.3 mg/dL (8.6-10.3); Globulin 3.2 g/dL (2.4-3.5); Potassium 2.9 mEq/L (3.5-5.1)
[2021-06-30] MEDS: Insulin LISPRO 300 UNITS/3 ML VIAL SUBQ SCH ×4 (05:25→23:32)
[2021-06-30] MEDS: Amiodarone Premix 360 MG/200 ML BAG IVC SCH ×2 (06:18→16:58)
[2021-06-30 06:36] LABS: Magnesium 1.7 mg/dL (1.6-2.6); Phosphorous 2.7 mg/dL (2.7-4.5); Troponin I 0.18 ng/mL (< 0.04)
[2021-06-30] MEDS ORDERED: *HR* Heparin 5,000 UNIT/ML VIAL IVP PRN (07:06)
[2021-06-30] MEDS ORDERED: *HR* Heparin 5,000 UNIT/ML VIAL IVP ONE (07:06)
[2021-06-30] MEDS: Phenylephrine 20 MG in 0.9 % Sodium Chloride 250 ML IVC SCH ×2 (07:38→20:57)
[2021-06-30] MEDS: Heparin 25,000UNIT/250ML 1/2NS 25,000 UNIT/250 ML IV.SOLN IVC SCH (08:35)
[2021-06-30] MEDS: cefTRIAXone 1,000 MG in 0.9 % Sodium Chloride 10 ML IVPB SCH (08:35)
[2021-06-30] MEDS: Chlorhexidine Rinse 15 ML MOUTHWASH MM SCH ×2 (08:35→20:58)
[2021-06-30] MEDS: Pantoprazole 40 MG VIAL IVP SCH (08:36)
[2021-06-30] MEDS: Aspirin 81 MG TAB.CHEW PO SCH (08:52)
[2021-06-30] MEDS ORDERED: Aspirin Enteric Coated 81 MG Tablet PO SCH (09:00)
[2021-06-30] MEDS ORDERED: Potassium Chloride Elixir 20 MEQ/15 ML UDC GTUBE ONE (11:43)
[2021-06-30 12:20] LABS: Magnesium 2.3 mg/dL (1.6-2.6); Phosphorous 3.4 mg/dL (2.7-4.5); Potassium 3.6 mEq/L (3.5-5.1)
[2021-06-30 14:07] LABS: Calcium 8.3 mg/dL (8.6-10.3)
[2021-06-30] MEDS: FentaNYL (PF) 1,000 MCG/100 ML IV.SOLN IVC SCH (14:13)
[2021-06-30] MEDS: Dexmedetomidine HCl 400 MCG/100 ML MLS IVC SCH (20:56)
[2021-07-01 02:37] LABS: Hepatitis B Surface Antibody < 3.10 mIU/mL
[2021-07-01 02:48] LABS: Hepatitis B Surface Antigen Nonreactive (Nonreactive)
[2021-07-01 03:56] LABS: Hematocrit 27.3 % (35.3-44.9); Hemoglobin 8.7 g/dL (11.5-15.4); Mean Corpuscular HGB Conc 31.9 g/dL (31.6-35.5); Mean Corpuscular Volume 94.1 fL (83.0-100.0); Mean Platelet Volume 11.7 fL (9.4-12.4); Platelet Count 118 K/mcL (140-400); Red Cell Distribution Width 14.3 % (11.5-14.5); White Blood Count 9.4 K/mcL (4.3-11.1)
[2021-07-01 04:02] LABS: VBG Ionized Calcium 1.07 mmol/L (1.15-1.35)
[2021-07-01 04:06] LABS: Prothrombin Time 11.6 Seconds (9.4-12.1)
[2021-07-01 04:13] LABS: Magnesium 2.3 mg/dL (1.6-2.6); Phosphorous 4.9 mg/dL (2.7-4.5)
[2021-07-01] MEDS: Amiodarone Premix 360 MG/200 ML BAG IVC SCH ×2 (04:15→16:31)
[2021-07-01 04:18] LABS: Albumin 2.6 g/dL (3.5-5.7); Albumin/Globulin Ratio 0.9 (1.1-2.2); Bilirubin,Total 0.6 mg/dL (0.3-1.0); Calcium 8.2 mg/dL (8.6-10.3); Potassium 3.1 mEq/L (3.5-5.1); Total Protein 5.6 g/dL (6.4-8.9)
[2021-07-01] MEDS: Artificial Tears SOLN 15 ML BOTTLE BOTH EYES SCH ×6 (04:40→23:35)
[2021-07-01 04:55] LABS: ABG Base Excess -1 mEq/L (-2 to 3); ABG HCO3 23 mEq/L (21-27); ABG Oxygen Saturation 100 % (95-98); ABG PCO2 35 mmHg (35-45); ABG PH 7.43 pH Units (7.32-7.45); ABG PO2 184 mmHg (85-104); ABG TCO2 24 mEq/L (20-26); Blood Gas VT 380 cc
[2021-07-01] MEDS: Insulin LISPRO 300 UNITS/3 ML VIAL SUBQ SCH ×4 (05:31→23:34)
[2021-07-01] MEDS: Calcium Gluconate 1gm/50mL 1 GM/50 ML BAG IVPB SCH ×2 (05:47→06:23)
[2021-07-01] MEDS: Pantoprazole 40 MG VIAL IVP SCH (07:39)
[2021-07-01] MEDS: Aspirin 81 MG TAB.CHEW PO SCH (07:39)
[2021-07-01] MEDS: cefTRIAXone 1,000 MG in 0.9 % Sodium Chloride 10 ML IVPB SCH (07:40)
[2021-07-01] MEDS: Chlorhexidine Rinse 15 ML MOUTHWASH MM SCH ×2 (07:40→20:55)
[2021-07-01] MEDS ORDERED: 0.9 % Sodium Chloride 250 ML IVC PRN (07:42)
[2021-07-01] MEDS ORDERED: 0.9 % Sodium Chloride 2,000 ML PRIME SCH (07:45)
[2021-07-01] MEDS: FentaNYL (PF) 1,000 MCG/100 ML IV.SOLN IVC SCH (10:35)
[2021-07-01] MEDS: Heparin 25,000UNIT/250ML 1/2NS 25,000 UNIT/250 ML IV.SOLN IVC SCH (10:37)
[2021-07-01 12:28] LABS: VBG Ionized Calcium 1.11 mmol/L (1.15-1.35)
[2021-07-01] MEDS ORDERED: Albumin 25% 25gram/100mL 25 GM/100 ML IV.SOLN IVPB PRN (12:51)
[2021-07-01] MEDS: Phenylephrine 20 MG in 0.9 % Sodium Chloride 250 ML IVC SCH (20:57)
[2021-07-02] MEDS ORDERED: Vancomycin 500 MG in 0.9 % Sodium Chloride Mini Bag 100 ML IVPB ONE
[2021-07-02] MEDS: *HR* Heparin 5,000 UNIT/ML VIAL IVP PRN ×2 (00:33→16:21)
[2021-07-02 03:41] LABS: VBG Ionized Calcium 1.08 mmol/L (1.15-1.35)
[2021-07-02 03:45] LABS: Hematocrit 24.7 % (35.3-44.9); Hemoglobin 7.9 g/dL (11.5-15.4); Mean Corpuscular Hemoglobin 30.3 pg (28.0-33.3); Mean Corpuscular Volume 94.6 fL (83.0-100.0); Mean Platelet Volume 11.8 fL (9.4-12.4); Platelet Count 124 K/mcL (140-400); Red Blood Count 2.61 M/mcL (3.82-4.97); Red Cell Distribution Width 14.4 % (11.5-14.5); White Blood Count 9.2 K/mcL (4.3-11.1)
[2021-07-02] MEDS: Artificial Tears SOLN 15 ML BOTTLE BOTH EYES SCH ×4 (03:45→17:00)
[2021-07-02 03:56] LABS: ABG Base Excess 5 mEq/L (-2 to 3); ABG HCO3 28 mEq/L (21-27); ABG Oxygen Saturation 99 % (95-98); ABG PCO2 36 mmHg (35-45); ABG PO2 130 mmHg (85-104); ABG TCO2 30 mEq/L (20-26); Blood Gas VT 380 cc
[2021-07-02 03:59] LABS: INR 1.1; Prothrombin Time 11.9 Seconds (9.4-12.1)
[2021-07-02 04:04] LABS: Albumin/Globulin Ratio 1.1 (1.1-2.2); Bilirubin,Total 0.8 mg/dL (0.3-1.0); Calcium 8.4 mg/dL (8.6-10.3); Globulin 2.7 g/dL (2.4-3.5); Potassium 3.6 mEq/L (3.5-5.1); Total Protein 5.7 g/dL (6.4-8.9)
[2021-07-02 04:09] LABS: % Iron Saturation 56 % (15-50); Iron 81 mcg/dL (50-170); Transferrin 104 mg/dL (203-362)
[2021-07-02] MEDS: Amiodarone Premix 360 MG/200 ML BAG IVC SCH ×2 (04:30→16:56)
[2021-07-02 04:38] LABS: Ferritin > 1500 ng/mL (10-120)
[2021-07-02] MEDS ORDERED: Potassium Chloride Elixir 20 MEQ/15 ML UDC GTUBE ONE (04:38)
[2021-07-02] MEDS: FentaNYL (PF) 1,000 MCG/100 ML IV.SOLN IVC SCH (04:48)
[2021-07-02] MEDS: Calcium Gluconate 1gm/50mL 1 GM/50 ML BAG IVPB SCH ×2 (04:49→05:32)
[2021-07-02] MEDS: Insulin LISPRO 300 UNITS/3 ML VIAL SUBQ SCH ×2 (05:32→18:41)
[2021-07-02] MEDS: Pantoprazole 40 MG VIAL IVP SCH (08:28)
[2021-07-02] MEDS: cefTRIAXone 1,000 MG in 0.9 % Sodium Chloride 10 ML IVPB SCH (08:31)
[2021-07-02] MEDS: Chlorhexidine Rinse 15 ML MOUTHWASH MM SCH (08:38)
[2021-07-02] MEDS: Aspirin 81 MG TAB.CHEW PO SCH (08:39)
[2021-07-02 11:35] LABS: VBG Ionized Calcium 1.17 mmol/L (1.15-1.35)
[2021-07-02 11:52] LABS: Magnesium 2.4 mg/dL (1.6-2.6); Phosphorous 2.2 mg/dL (2.7-4.5)
[2021-07-02] MEDS: Insulin DETEMIR 100 UNIT/ML X5UNITS SUBQ SCH (12:59)
[2021-07-02] MEDS ORDERED: Insulin LISPRO 300 UNITS/3 ML VIAL SUBQ SCH ×2 (16:00→21:00)
[2021-07-02] MEDS: Heparin 25,000UNIT/250ML 1/2NS 25,000 UNIT/250 ML IV.SOLN IVC SCH (16:49)
[2021-07-02] MEDS: Phenylephrine 20 MG in 0.9 % Sodium Chloride 250 ML IVC SCH (20:02)
[2021-07-03] MEDS ORDERED: Potassium Chloride 40 MEQ/200 ML BAG IVPB PRN (00:50)
[2021-07-03] MEDS ORDERED: Calcium Gluconate 1gm/50mL 1 GM/50 ML BAG IVPB PRN (00:50)
[2021-07-03] MEDS ORDERED: Potassium Phosphate 44 MEQ in 0.9 % Sodium Chloride 250 ML IVPB PRN (00:50)
[2021-07-03 05:05] LABS: Hematocrit 25.7 % (35.3-44.9); Hemoglobin 8.2 g/dL (11.5-15.4); Mean Corpuscular HGB Conc 31.9 g/dL (31.6-35.5); Mean Corpuscular Hemoglobin 30.1 pg (28.0-33.3); Mean Corpuscular Volume 94.5 fL (83.0-100.0); Mean Platelet Volume 11.8 fL (9.4-12.4); Red Blood Count 2.72 M/mcL (3.82-4.97); Red Cell Distribution Width 14.4 % (11.5-14.5); White Blood Count 14.2 K/mcL (4.3-11.1)
[2021-07-03 05:09] LABS: Heparin anti-factor XA UFH 0.68 IU/mL (0.30-0.70)
[2021-07-03 05:25] LABS: Albumin 2.7 g/dL (3.5-5.7); Bilirubin,Total 0.6 mg/dL (0.3-1.0); Calcium 8.3 mg/dL (8.6-10.3); Globulin 2.8 g/dL (2.4-3.5); Magnesium 2.2 mg/dL (1.6-2.6); Phosphorous 3.7 mg/dL (2.7-4.5); Potassium 4.4 mEq/L (3.5-5.1); Total Protein 5.5 g/dL (6.4-8.9)
[2021-07-03 05:27] LABS: VBG Ionized Calcium 1.12 mmol/L (1.15-1.35)
[2021-07-03] MEDS ORDERED: Ethyl Chloride Spray Bottle (104 SPRAY/BOTTLE) TP PRN ×2 (06:14→11:00)
[2021-07-03] MEDS ORDERED: 0.9 % Sodium Chloride 250 ML IVC PRN (06:14)
[2021-07-03] MEDS: Insulin LISPRO 300 UNITS/3 ML VIAL SUBQ SCH ×4 (08:31→21:40)
[2021-07-03] MEDS: Aspirin 81 MG TAB.CHEW PO SCH (08:40)
[2021-07-03] MEDS: Pantoprazole 40 MG VIAL IVP SCH (08:45)
[2021-07-03] MEDS: cefTRIAXone 1,000 MG in 0.9 % Sodium Chloride 10 ML IVPB SCH (08:46)
[2021-07-03] MEDS: Insulin DETEMIR 100 UNIT/ML X5UNITS SUBQ SCH (08:54)
[2021-07-03] MEDS ORDERED: *HR* Amiodarone 200 MG TABLET PO SCH (09:00)
[2021-07-03] MEDS ORDERED: D5% in Water 1,000 ML IVC PRN (11:00)
[2021-07-03] MEDS ORDERED: Dextrose 4 GM Chewable Tablets PO PRN ×2 (11:00)
[2021-07-03] MEDS ORDERED: Naloxone 0.4 MG/ML INJ IVP PRN (11:00)
[2021-07-03] MEDS ORDERED: 0.9 % Sodium Chloride 2,000 ML PRIME SCH (11:00)
[2021-07-03] MEDS ORDERED: *HR* Dextrose 50 % in Water (Syg) 50 ML SYRINGE IVP PRN (11:00)
[2021-07-03] MEDS ORDERED: *HR* Heparin 5,000 UNIT/ML VIAL IVP PRN ×2 (11:00)
[2021-07-03] MEDS: Heparin 25,000UNIT/250ML 1/2NS 25,000 UNIT/250 ML IV.SOLN IVC SCH ×2 (12:32→17:29)
[2021-07-03] MEDS ORDERED: Acetaminophen 325 MG TABLET PO PRN (16:51)
[2021-07-03] MEDS: *HR* Amiodarone 200 MG TABLET PO SCH (20:24)
[2021-07-04 04:24] LABS: Hematocrit 26.1 % (35.3-44.9); Hemoglobin 8.4 g/dL (11.5-15.4); Mean Corpuscular HGB Conc 32.2 g/dL (31.6-35.5); Mean Corpuscular Volume 93.2 fL (83.0-100.0); Mean Platelet Volume 12.2 fL (9.4-12.4); Platelet Count 132 K/mcL (140-400); Red Cell Distribution Width 14.6 % (11.5-14.5)
[2021-07-04 04:33] LABS: VBG Ionized Calcium 1.13 mmol/L (1.15-1.35)
[2021-07-04 04:36] LABS: Heparin anti-factor XA UFH 0.66 IU/mL (0.30-0.70); Prothrombin Time 11.1 Seconds (9.4-12.1)
[2021-07-04 04:41] LABS: Albumin 2.9 g/dL (3.5-5.7); Albumin/Globulin Ratio 1.2 (1.1-2.2); Bilirubin,Total 0.6 mg/dL (0.3-1.0); Calcium 8.1 mg/dL (8.6-10.3); Globulin 2.5 g/dL (2.4-3.5); Magnesium 1.9 mg/dL (1.6-2.6); Phosphorous 2.9 mg/dL (2.7-4.5); Total Protein 5.4 g/dL (6.4-8.9)
[2021-07-04] MEDS: cefTRIAXone 1,000 MG in 0.9 % Sodium Chloride 10 ML IVPB SCH (08:55)
[2021-07-04] MEDS: Aspirin 81 MG TAB.CHEW PO SCH (08:56)
[2021-07-04] MEDS: Famotidine 20 MG TABLET PO SCH (08:56)
[2021-07-04] MEDS: *HR* Amiodarone 200 MG TABLET PO SCH ×2 (08:56→21:35)
[2021-07-04] MEDS: Insulin LISPRO 300 UNITS/3 ML VIAL SUBQ SCH ×4 (08:56→21:19)
[2021-07-04] MEDS: Heparin 25,000UNIT/250ML 1/2NS 25,000 UNIT/250 ML IV.SOLN IVC SCH (11:25)
[2021-07-04] MEDS: Insulin DETEMIR 100 UNIT/ML X5UNITS SUBQ SCH (12:18)
[2021-07-05 05:26] LABS: VBG Ionized Calcium 1.11 mmol/L (1.15-1.35)
[2021-07-05 05:41] LABS: Magnesium 1.8 mg/dL (1.6-2.6); Phosphorous 3.9 mg/dL (2.7-4.5)
[2021-07-05] MEDS: Insulin LISPRO 300 UNITS/3 ML VIAL SUBQ SCH ×4 (07:42→21:30)
[2021-07-05] MEDS: cefTRIAXone 1,000 MG in 0.9 % Sodium Chloride 10 ML IVPB SCH (07:59)
[2021-07-05] MEDS: Famotidine 20 MG TABLET PO SCH (08:00)
[2021-07-05] MEDS: Aspirin 81 MG TAB.CHEW PO SCH (08:00)
[2021-07-05] MEDS: *HR* Amiodarone 200 MG TABLET PO SCH ×2 (08:00→21:29)
[2021-07-05] MEDS: Insulin DETEMIR 100 UNIT/ML X5UNITS SUBQ SCH (08:01)
[2021-07-05 08:35] LABS: Basophils % 0.6 %; Eosinophils # 0.1 K/mcL (0.0-0.6); Eosinophils % 0.9 %; Hematocrit 26.2 % (35.3-44.9); Hemoglobin 8.2 g/dL (11.5-15.4); Immature Granulocytes % 3.4 % (0-4); Lymphocytes # 1.6 K/mcL (0.6-4.6); Lymphocytes % 23.9 %; Mean Corpuscular HGB Conc 31.3 g/dL (31.6-35.5); Mean Corpuscular Hemoglobin 29.8 pg (28.0-33.3); Mean Corpuscular Volume 95.3 fL (83.0-100.0); Mean Platelet Volume 12.7 fL (9.4-12.4); Monocytes # 0.5 K/mcL (0.0-1.3); Monocytes % 7.8 %; Neutrophils # 4.3 K/mcL (1.6-8.9); Platelet Count 149 K/mcL (140-400); Red Blood Count 2.75 M/mcL (3.82-4.97); Red Cell Distribution Width 14.8 % (11.5-14.5); Segmented Neutrophils % 63.4 %; White Blood Count 6.8 K/mcL (4.3-11.1)
[2021-07-05 08:49] LABS: Calcium 8.2 mg/dL (8.6-10.3)
[2021-07-05] MEDS: Heparin 25,000UNIT/250ML 1/2NS 25,000 UNIT/250 ML IV.SOLN IVC SCH (11:42)
[2021-07-06 05:32] LABS: Basophils % 0.5 %; Eosinophils # 0.1 K/mcL (0.0-0.6); Eosinophils % 1.4 %; Hematocrit 25.8 % (35.3-44.9); Hemoglobin 8.4 g/dL (11.5-15.4); Immature Granulocytes % 4.9 % (0-4); Mean Corpuscular HGB Conc 32.6 g/dL (31.6-35.5); Mean Corpuscular Hemoglobin 30.8 pg (28.0-33.3); Mean Corpuscular Volume 94.5 fL (83.0-100.0); Monocytes # 0.7 K/mcL (0.0-1.3); Monocytes % 8.4 %; Neutrophils # 4.9 K/mcL (1.6-8.9); Nucleated Red Blood Cells 0.2 /100 WBC (0); Platelet Count 169 K/mcL (140-400); Red Blood Count 2.73 M/mcL (3.82-4.97); Segmented Neutrophils % 59.8 %; White Blood Count 8.1 K/mcL (4.3-11.1)
[2021-07-06 05:51] LABS: Calcium 8.2 mg/dL (8.6-10.3); Potassium 3.9 mEq/L (3.5-5.1)
[2021-07-06] MEDS: Famotidine 20 MG TABLET PO SCH (08:32)
[2021-07-06] MEDS: Insulin DETEMIR 100 UNIT/ML X5UNITS SUBQ SCH (08:32)
[2021-07-06] MEDS: Aspirin 81 MG TAB.CHEW PO SCH (08:32)
[2021-07-06] MEDS: *HR* Amiodarone 200 MG TABLET PO SCH ×2 (08:32→20:10)
[2021-07-06] MEDS: Insulin LISPRO 300 UNITS/3 ML VIAL SUBQ SCH ×4 (08:33→20:10)
[2021-07-06] MEDS: cefTRIAXone 1,000 MG in 0.9 % Sodium Chloride 10 ML IVPB SCH (08:36)
[2021-07-06] MEDS: Heparin 25,000UNIT/250ML 1/2NS 25,000 UNIT/250 ML IV.SOLN IVC SCH (13:02)
[2021-07-06] MEDS ORDERED: Vancomycin 500 MG in 0.9 % Sodium Chloride Mini Bag 100 ML IVPB ONE (16:00)
[2021-07-07 04:53] LABS: Basophils # 0.1 K/mcL (0.0-0.2); Basophils % 0.7 %; Eosinophils # 0.1 K/mcL (0.0-0.6); Eosinophils % 1.2 %; Hematocrit 26.4 % (35.3-44.9); Hemoglobin 8.4 g/dL (11.5-15.4); Immature Granulocytes % 4.7 % (0-4); Lymphocytes # 2.9 K/mcL (0.6-4.6); Lymphocytes % 27.7 %; Mean Corpuscular HGB Conc 31.8 g/dL (31.6-35.5); Mean Corpuscular Hemoglobin 30.4 pg (28.0-33.3); Mean Corpuscular Volume 95.7 fL (83.0-100.0); Mean Platelet Volume 12.1 fL (9.4-12.4); Monocytes # 0.8 K/mcL (0.0-1.3); Monocytes % 7.7 %; Neutrophils # 6.1 K/mcL (1.6-8.9); Platelet Count 220 K/mcL (140-400); Red Blood Count 2.76 M/mcL (3.82-4.97); Red Cell Distribution Width 15.5 % (11.5-14.5); White Blood Count 10.6 K/mcL (4.3-11.1)
[2021-07-07 05:12] LABS: Calcium 8.4 mg/dL (8.6-10.3); Potassium 3.9 mEq/L (3.5-5.1)
[2021-07-07] MEDS: Insulin LISPRO 300 UNITS/3 ML VIAL SUBQ SCH ×4 (07:19→21:36)
[2021-07-07] MEDS: Insulin DETEMIR 100 UNIT/ML X5UNITS SUBQ SCH (07:51)
[2021-07-07] MEDS: Famotidine 20 MG TABLET PO SCH (07:51)
[2021-07-07] MEDS: Aspirin 81 MG TAB.CHEW PO SCH (07:51)
[2021-07-07] MEDS: *HR* Amiodarone 200 MG TABLET PO SCH ×2 (07:51→21:36)
[2021-07-07] MEDS: cefTRIAXone 1,000 MG in 0.9 % Sodium Chloride 10 ML IVPB SCH (07:52)
[2021-07-07] MEDS ORDERED: Ethyl Chloride Spray Bottle (104 SPRAY/BOTTLE) TP PRN (09:30)
[2021-07-07] MEDS ORDERED: 0.9 % Sodium Chloride 250 ML IVC PRN (09:30)
[2021-07-07] MEDS ORDERED: Haloperidol Lactate 5 MG/ML VIAL IM ONE (10:50)
[2021-07-07] MEDS: Heparin 25,000UNIT/250ML 1/2NS 25,000 UNIT/250 ML IV.SOLN IVC SCH (16:02)
[2021-07-08 03:46] LABS: Basophils % 0.2 %; Eosinophils # 0.1 K/mcL (0.0-0.6); Eosinophils % 1.2 %; Hematocrit 24.8 % (35.3-44.9); Hemoglobin 7.9 g/dL (11.5-15.4); Immature Granulocytes % 2.4 % (0-4); Lymphocytes # 2.5 K/mcL (0.6-4.6); Lymphocytes % 24.3 %; Mean Corpuscular HGB Conc 31.9 g/dL (31.6-35.5); Mean Corpuscular Hemoglobin 30.6 pg (28.0-33.3); Mean Corpuscular Volume 96.1 fL (83.0-100.0); Mean Platelet Volume 12.6 fL (9.4-12.4); Monocytes % 9.8 %; Neutrophils # 6.3 K/mcL (1.6-8.9); Platelet Count 180 K/mcL (140-400); Red Blood Count 2.58 M/mcL (3.82-4.97); Red Cell Distribution Width 15.8 % (11.5-14.5); Segmented Neutrophils % 62.1 %; White Blood Count 10.2 K/mcL (4.3-11.1)
[2021-07-08 03:57] LABS: Calcium 8.4 mg/dL (8.6-10.3); Potassium 3.5 mEq/L (3.5-5.1)
[2021-07-08] MEDS: Famotidine 20 MG TABLET PO SCH (08:21)
[2021-07-08] MEDS: Insulin LISPRO 300 UNITS/3 ML VIAL SUBQ SCH ×4 (08:21→23:11)
[2021-07-08] MEDS: Aspirin 81 MG TAB.CHEW PO SCH (08:21)
[2021-07-08] MEDS: *HR* Amiodarone 200 MG TABLET PO SCH ×2 (08:21→23:11)
[2021-07-08] MEDS: Insulin DETEMIR 100 UNIT/ML X5UNITS SUBQ SCH (08:22)
[2021-07-08] MEDS: cefTRIAXone 1,000 MG in 0.9 % Sodium Chloride 10 ML IVPB SCH (08:22)
[2021-07-08] MEDS ORDERED: 0.9 % Sodium Chloride 250 ML IVC PRN (08:34)
[2021-07-08] MEDS ORDERED: *HR* Heparin 10,000 UNIT/10 ML VIAL IV PRN (08:34)
[2021-07-08] MEDS ORDERED: *HR* Midazolam HCl 2 MG/2 ML VIAL ONE (13:28)
[2021-07-08] MEDS ORDERED: *HR* Heparin 10,000 UNIT/10 ML VIAL ONE (13:28)
[2021-07-08] MEDS ORDERED: *HR* FentaNYL (PF) 100 MCG/2 ML VIAL ONE (13:28)
[2021-07-08] MEDS ORDERED: 0.9 % Sodium Chloride 1,000 ML ONE (13:28)
[2021-07-08] MEDS ORDERED: Heparin 1,000 UNITS/500 mL 500 ML ONE (13:28)
[2021-07-08] MEDS ORDERED: ISOVUE-370 200 ML INFUS..BTL ONE (13:28)
[2021-07-08] MEDS ORDERED: Nitroglycerin 1,000 MCG/5 ML VIAL IV ONE (13:29)
[2021-07-08] MEDS: Heparin 25,000UNIT/250ML 1/2NS 25,000 UNIT/250 ML IV.SOLN IVC SCH (15:34)
[2021-07-09 03:54] LABS: Basophils % 0.5 %; Eosinophils # 0.1 K/mcL (0.0-0.6); Eosinophils % 1.3 %; Hematocrit 22.6 % (35.3-44.9); Hemoglobin 7.3 g/dL (11.5-15.4); Immature Granulocytes % 1.3 % (0-4); Lymphocytes # 2.2 K/mcL (0.6-4.6); Lymphocytes % 35.7 %; Mean Corpuscular HGB Conc 32.3 g/dL (31.6-35.5); Mean Corpuscular Hemoglobin 31.2 pg (28.0-33.3); Mean Corpuscular Volume 96.6 fL (83.0-100.0); Mean Platelet Volume 11.8 fL (9.4-12.4); Monocytes # 0.7 K/mcL (0.0-1.3); Neutrophils # 3.2 K/mcL (1.6-8.9); Nucleated Red Blood Cells 0.3 /100 WBC (0); Platelet Count 153 K/mcL (140-400); Red Blood Count 2.34 M/mcL (3.82-4.97); Red Cell Distribution Width 16.3 % (11.5-14.5); Segmented Neutrophils % 50.2 %; White Blood Count 6.3 K/mcL (4.3-11.1)
[2021-07-09 04:12] LABS: Calcium 8.4 mg/dL (8.6-10.3); Potassium 3.6 mEq/L (3.5-5.1)
[2021-07-09] MEDS: Insulin LISPRO 300 UNITS/3 ML VIAL SUBQ SCH ×4 (07:34→20:34)
[2021-07-09] MEDS: Famotidine 20 MG TABLET PO SCH (08:34)
[2021-07-09] MEDS: Aspirin 81 MG TAB.CHEW PO SCH (08:35)
[2021-07-09] MEDS: *HR* Amiodarone 200 MG TABLET PO SCH ×2 (08:35→20:34)
[2021-07-09] MEDS: Insulin DETEMIR 100 UNIT/ML X5UNITS SUBQ SCH (08:54)
[2021-07-09] MEDS ORDERED: 0.9 % Sodium Chloride 500 ML IVC ONE (10:14)
[2021-07-09] MEDS ORDERED: Lidocaine Viscous Oral Soln 15 ML SOLUTION MM PRN (10:14)
[2021-07-09] MEDS: *HR* FentaNYL (PF) 100 MCG/2 ML VIAL IVP PRN ×3 (10:55→11:05)
[2021-07-09] MEDS: *HR* Midazolam HCl 5 MG/5 ML VIAL IVP PRN ×3 (10:55→11:05)
[2021-07-09] MEDS ORDERED: Heparin 25,000UNIT/250ML 1/2NS 25,000 UNIT/250 ML IV.SOLN IVC SCH (11:25)
[2021-07-09] MEDS: Heparin 25,000UNIT/250ML 1/2NS 25,000 UNIT/250 ML IV.SOLN IVC SCH (14:11)
[2021-07-09] MEDS: Ampicillin 2,000 MG in 0.9 % Sodium Chloride Mini Bag 100 ML IVPB SCH (14:38)
[2021-07-09 16:17] LABS: ABG Base Excess 7 mEq/L (-2 to 3); ABG HCO3 31 mEq/L (21-27); ABG Oxygen Saturation 95 % (95-98); ABG PCO2 37 mmHg (35-45); ABG PH 7.52 pH Units (7.32-7.45); ABG PO2 66 mmHg (85-104); ABG TCO2 32 mEq/L (20-26)
[2021-07-09] MEDS: cefTRIAXone 2,000 MG in 0.9 % Sodium Chloride 20 ML IVPB SCH (17:34)
[2021-07-09] MEDS ORDERED: Apixaban 5 MG TABLET PO SCH (21:00)
[2021-07-10] MEDS: Ampicillin 2,000 MG in 0.9 % Sodium Chloride Mini Bag 100 ML IVPB SCH (03:10)
[2021-07-10 03:35] LABS: Basophils % 0.2 %; Eosinophils # 0.1 K/mcL (0.0-0.6); Eosinophils % 0.4 %; Hematocrit 21.7 % (35.3-44.9); Hemoglobin 6.7 g/dL (11.5-15.4); Immature Granulocytes % 0.9 % (0-4); Lymphocytes # 1.9 K/mcL (0.6-4.6); Lymphocytes % 12.5 %; Mean Corpuscular HGB Conc 30.9 g/dL (31.6-35.5); Mean Corpuscular Hemoglobin 30.7 pg (28.0-33.3); Mean Corpuscular Volume 99.5 fL (83.0-100.0); Mean Platelet Volume 11.7 fL (9.4-12.4); Monocytes # 0.9 K/mcL (0.0-1.3); Monocytes % 6.2 %; Neutrophils # 11.8 K/mcL (1.6-8.9); Platelet Count 168 K/mcL (140-400); Red Blood Count 2.18 M/mcL (3.82-4.97); Red Cell Distribution Width 16.9 % (11.5-14.5); Segmented Neutrophils % 79.8 %; White Blood Count 14.8 K/mcL (4.3-11.1)
[2021-07-10 03:56] LABS: Calcium 8.3 mg/dL (8.6-10.3); Magnesium 1.8 mg/dL (1.6-2.6); Potassium 3.8 mEq/L (3.5-5.1)
[2021-07-10 04:40] LABS: Basophils % 0.1 %; Eosinophils # 0.1 K/mcL (0.0-0.6); Eosinophils % 0.4 %; Hematocrit 21.3 % (35.3-44.9); Hemoglobin 6.6 g/dL (11.5-15.4); Immature Granulocytes % 0.6 % (0-4); Lymphocytes # 2.1 K/mcL (0.6-4.6); Lymphocytes % 14.3 %; Mean Platelet Volume 12.5 fL (9.4-12.4); Monocytes # 1.1 K/mcL (0.0-1.3); Monocytes % 7.1 %; Neutrophils # 11.5 K/mcL (1.6-8.9); Platelet Count 173 K/mcL (140-400); Red Blood Count 2.13 M/mcL (3.82-4.97); Red Cell Distribution Width 16.9 % (11.5-14.5); Segmented Neutrophils % 77.5 %; White Blood Count 14.9 K/mcL (4.3-11.1)
[2021-07-10] MEDS ORDERED: 0.9 % Sodium Chloride 250 ML ONE (05:45)
[2021-07-10] MEDS: cefTRIAXone 2,000 MG in 0.9 % Sodium Chloride 20 ML IVPB SCH (06:00)
[2021-07-10] MEDS ORDERED: 0.9 % Sodium Chloride 250 ML IVC PRN (08:33)
[2021-07-10] MEDS ORDERED: *HR* Heparin 10,000 UNIT/10 ML VIAL IV PRN (08:33)
[2021-07-10] MEDS: *HR* Amiodarone 200 MG TABLET PO SCH ×2 (09:09→21:52)
[2021-07-10] MEDS: Famotidine 20 MG TABLET PO SCH (09:09)
[2021-07-10] MEDS: Insulin DETEMIR 100 UNIT/ML X5UNITS SUBQ SCH (09:10)
[2021-07-10] MEDS: Insulin LISPRO 300 UNITS/3 ML VIAL SUBQ SCH ×4 (09:12→21:31)
[2021-07-10 10:13] LABS: Hematocrit 26.6 % (35.3-44.9)
[2021-07-10 10:36] LABS: Hemoglobin 8.4 g/dL (11.5-15.4)
[2021-07-10] MEDS ORDERED: Gentamicin 110 MG in 0.9 % Sodium Chloride 100 ML IVPB SCH (14:00)
[2021-07-10] MEDS: Ondansetron 4 MG/2 ML VIAL IVP PRN (15:28)
[2021-07-10] MEDS ORDERED: Gentamicin 180 MG in 0.9 % Sodium Chloride 100 ML IVPB ONE ×2 (18:00→22:00)
[2021-07-10] MEDS ORDERED: Vancomycin 500 MG in 0.9 % Sodium Chloride Mini Bag 100 ML IVPB ONE ×2 (18:00→22:00)
[2021-07-11 02:36] LABS: Basophils % 0.3 %; Eosinophils # 0.2 K/mcL (0.0-0.6); Eosinophils % 1.7 %; Hematocrit 27.6 % (35.3-44.9); Hemoglobin 8.9 g/dL (11.5-15.4); Immature Granulocytes % 1.6 % (0-4); Lymphocytes # 2.4 K/mcL (0.6-4.6); Lymphocytes % 26.1 %; Mean Corpuscular HGB Conc 32.2 g/dL (31.6-35.5); Mean Corpuscular Hemoglobin 30.6 pg (28.0-33.3); Mean Corpuscular Volume 94.8 fL (83.0-100.0); Mean Platelet Volume 11.8 fL (9.4-12.4); Monocytes # 0.7 K/mcL (0.0-1.3); Monocytes % 7.2 %; Neutrophils # 5.8 K/mcL (1.6-8.9); Platelet Count 194 K/mcL (140-400); Red Blood Count 2.91 M/mcL (3.82-4.97); Red Cell Distribution Width 16.9 % (11.5-14.5); Segmented Neutrophils % 63.1 %; White Blood Count 9.2 K/mcL (4.3-11.1)
[2021-07-11 02:54] LABS: Calcium 8.6 mg/dL (8.6-10.3); Potassium 3.7 mEq/L (3.5-5.1)
[2021-07-11] MEDS: Insulin LISPRO 300 UNITS/3 ML VIAL SUBQ SCH ×4 (07:25→20:21)
[2021-07-11] MEDS: Insulin DETEMIR 100 UNIT/ML X5UNITS SUBQ SCH (09:19)
[2021-07-11] MEDS: Famotidine 20 MG TABLET PO SCH (09:19)
[2021-07-11] MEDS: *HR* Amiodarone 200 MG TABLET PO SCH ×2 (09:28→20:20)
[2021-07-12 07:25] LABS: Basophils % 0.5 %; Eosinophils # 0.1 K/mcL (0.0-0.6); Eosinophils % 1.8 %; Hematocrit 30.9 % (35.3-44.9); Hemoglobin 9.7 g/dL (11.5-15.4); Immature Granulocytes % 1.5 % (0-4); Lymphocytes # 2.1 K/mcL (0.6-4.6); Lymphocytes % 27.4 %; Mean Corpuscular HGB Conc 31.4 g/dL (31.6-35.5); Mean Corpuscular Hemoglobin 30.8 pg (28.0-33.3); Mean Corpuscular Volume 98.1 fL (83.0-100.0); Mean Platelet Volume 11.8 fL (9.4-12.4); Monocytes # 0.7 K/mcL (0.0-1.3); Monocytes % 8.6 %; Neutrophils # 4.7 K/mcL (1.6-8.9); Platelet Count 176 K/mcL (140-400); Red Blood Count 3.15 M/mcL (3.82-4.97); Red Cell Distribution Width 16.9 % (11.5-14.5); Segmented Neutrophils % 60.2 %; White Blood Count 7.8 K/mcL (4.3-11.1)
[2021-07-12 07:31] LABS: Calcium 8.4 mg/dL (8.6-10.3); Potassium 4.3 mEq/L (3.5-5.1)
[2021-07-12] MEDS: Famotidine 20 MG TABLET PO SCH (09:22)
[2021-07-12] MEDS: amLODIPine 5 MG TABLET PO SCH (09:22)
[2021-07-12] MEDS: *HR* Amiodarone 200 MG TABLET PO SCH ×2 (09:23→20:51)
[2021-07-12] MEDS: Insulin LISPRO 300 UNITS/3 ML VIAL SUBQ SCH ×4 (09:23→20:51)
[2021-07-12] MEDS: Insulin DETEMIR 100 UNIT/ML X5UNITS SUBQ SCH (09:23)
[2021-07-12] MEDS: Ondansetron 4 MG/2 ML VIAL IVP PRN (21:49)
[2021-07-13 05:09] LABS: Basophils % 0.5 %; Eosinophils # 0.2 K/mcL (0.0-0.6); Eosinophils % 2.9 %; Hematocrit 25.7 % (35.3-44.9); Immature Granulocytes % 1.3 % (0-4); Lymphocytes # 2.2 K/mcL (0.6-4.6); Lymphocytes % 27.1 %; Mean Corpuscular HGB Conc 31.5 g/dL (31.6-35.5); Mean Corpuscular Volume 98.5 fL (83.0-100.0); Mean Platelet Volume 11.8 fL (9.4-12.4); Monocytes # 0.6 K/mcL (0.0-1.3); Monocytes % 7.3 %; Neutrophils # 4.9 K/mcL (1.6-8.9); Nucleated Red Blood Cells 0.3 /100 WBC (0); Platelet Count 184 K/mcL (140-400); Red Blood Count 2.61 M/mcL (3.82-4.97); Red Cell Distribution Width 16.3 % (11.5-14.5); Segmented Neutrophils % 60.9 %
[2021-07-13 05:12] LABS: Hemoglobin 8.1 g/dL (11.5-15.4)
[2021-07-13 05:31] LABS: Calcium 7.9 mg/dL (8.6-10.3); Magnesium 1.8 mg/dL (1.6-2.6)
[2021-07-13] MEDS: Insulin LISPRO 300 UNITS/3 ML VIAL SUBQ SCH ×4 (07:51→22:25)
[2021-07-13] MEDS: *HR* Amiodarone 200 MG TABLET PO SCH ×2 (07:53→20:47)
[2021-07-13] MEDS: amLODIPine 5 MG TABLET PO SCH (07:53)
[2021-07-13] MEDS: Insulin DETEMIR 100 UNIT/ML X5UNITS SUBQ SCH (08:04)
[2021-07-13] MEDS: Famotidine 20 MG TABLET PO SCH (08:05)
[2021-07-13] MEDS ORDERED: Gentamicin 60 MG in 0.9 % Sodium Chloride 100 ML IVPB SCH (16:00)
[2021-07-13] MEDS ORDERED: Vancomycin 500 MG in 0.9 % Sodium Chloride Mini Bag 100 ML IVPB ONE (18:00)
[2021-07-14] MEDS: Insulin LISPRO 300 UNITS/3 ML VIAL SUBQ SCH ×4 (08:00→21:32)
[2021-07-14] MEDS ORDERED: Ethyl Chloride Spray Bottle (104 SPRAY/BOTTLE) TP PRN (08:31)
[2021-07-14] MEDS ORDERED: 0.9 % Sodium Chloride 250 ML IVC PRN (08:31)
[2021-07-14] MEDS: *HR* Amiodarone 200 MG TABLET PO SCH ×2 (08:38→21:36)
[2021-07-14] MEDS: Famotidine 20 MG TABLET PO SCH (08:38)
[2021-07-14] MEDS: amLODIPine 5 MG TABLET PO SCH (08:40)
[2021-07-14] MEDS ORDERED: Lidocaine -MPF 1% 5 ML AMPUL INFILT ONE (11:00)
[2021-07-14 11:18] LABS: Calcium 8.5 mg/dL (8.6-10.3); Potassium 5.4 mEq/L (3.5-5.1)
[2021-07-14] MEDS: Insulin DETEMIR 100 UNIT/ML X5UNITS SUBQ SCH (12:02)
[2021-07-14 18:22] VITALS: TEMP 98.4
[2021-07-14 19:55] VITALS: BP 108/46; PULSE 70; O2SAT 99
== END 2021-07-14 22:53 | disposition hospice, home (50) | DRG 720 ==
LOC: SUATTDRO 17:52 → ICNU 17:52 → 2ANU 07-03 10:50
PROVIDERS: ADMIT Internal Medicine; ATTEND Family Medicine